=== PATIENT | male | born 1965 | race Caucasian/White ===

== ENCOUNTER 2020-09-13 23:09 | Emergency (ER) | payer OTHER ==
[~2020-09-13] VITALS: Ht 172.7 cm; Wt 99.8 kg
[2020-09-13 23:19] VITALS: Ht 172.7 cm; Wt 99.8 kg
[2020-09-14 01:18] LABS: PLATELET COUNT 223 x10^3mcL (152-348); RED CELL DISTRIBUTION WIDTH 13.8 % (12.1-16.2)
[2020-09-14 01:23] LABS: CALCIUM 8.4 mg/dL (8.5-10.1); CARBON DIOXIDE 26.7 mmol/L (21-32); CHLORIDE SERUM 102 mmol/L (98-107); CREATININE SERUM 0.8 mg/dL (0.7-1.3); GFR1 > 60 mL/min; GLUCOSE SERUM 104 mg/dL (74-106); POTASSIUM SERUM 3.7 mmol/L (3.5-5.1); SODIUM SERUM 137 mmol/L (136-145)
[2020-09-14 01:29] LABS: ALBUMIN 3.5 g/dL (3.4-5.0); ALKALINE PHOSPHATASE 105 U/L (46-116); ALT/SGPT 29 U/L (16-63); AMYLASE 82 U/L (25-115); AST/SGOT 14 U/L (15-37); BILIRUBIN TOTAL 0.3 mg/dL (0.20-1.00); LIPASE 240 IU/L (73-393); TOTAL PROTEIN, SERUM 6.5 g/dL (6.4-8.2)
[2020-09-14 02:59] VITALS: BP 144/77
[2020-09-14 03:28] LABS: UA SPECIFIC GRAVITY 1.015 (1.005-1.035); microscopic required? YES; urine erythrocyte 3+ (NEGATIVE)
== END 2020-09-14 03:05 | disposition home or self-care (01) ==
LOC: ED 23:09
PROVIDERS: Specialist
DX: N23 Unspecified renal colic (principal); Z95.1 Presence of aortocoronary bypass graft
CPT/HCPCS: J1885; J2405; J3010; J7030

== ENCOUNTER 2020-09-20 04:20 | Inpatient (IN) | payer OTHER ==
[~2020-09-20] VITALS: Ht 170.2 cm; Wt 99.3 kg
[2020-09-20 05:11] LABS: BASOPHIL % 0.4 % (0.2-1.5); PLATELET COUNT 228 x10^3mcL (152-348); RED CELL DISTRIBUTION WIDTH 13.4 % (12.1-16.2)
[2020-09-20 05:15] LABS: CALCIUM 8.8 mg/dL (8.5-10.1); CHLORIDE SERUM 103 mmol/L (98-107); CREATININE SERUM 1.3 mg/dL (0.7-1.3); GFR1 > 60 mL/min; GLUCOSE SERUM 132 mg/dL (74-106); POTASSIUM SERUM 3.8 mmol/L (3.5-5.1); SODIUM SERUM 136 mmol/L (136-145)
[2020-09-20 05:20] LABS: ALBUMIN 3.6 g/dL (3.4-5.0); ALKALINE PHOSPHATASE 134 U/L (46-116); ALT/SGPT 28 U/L (16-63); AST/SGOT 16 U/L (15-37); BILIRUBIN TOTAL 0.25 mg/dL (0.20-1.00); TOTAL PROTEIN, SERUM 6.9 g/dL (6.4-8.2)
[2020-09-20] MEDS ORDERED: LIPI10 (05:58)
[2020-09-20] MEDS ORDERED: ZESTRIL2.5 MG (05:59)
[2020-09-20] MEDS ORDERED: BISOPROLOL FUMAR5 MG (05:59)
[2020-09-20] MEDS ORDERED: [UNRECOGNIZED DRUG - OTHER] (06:00)
[2020-09-20] MEDS ORDERED: CELEBREX50 M1 (06:00)
[2020-09-20] MEDS ORDERED: PANTOPRAZOLE SO40 M3 (06:00)
[2020-09-20 08:22] LABS: BASOPHIL % 0.1 % (0.2-1.5); PLATELET COUNT 178 x10^3mcL (152-348); RED CELL DISTRIBUTION WIDTH 13.9 % (12.1-16.2)
[2020-09-20 09:36] LABS: rbc morphology (normal/abnorm) NORMAL (NORMAL)
[2020-09-20 11:22] VITALS: BP 125/65
[2020-09-20 13:36] LABS: BASOPHIL % 0.7 % (0.2-1.5); PLATELET COUNT 219 x10^3mcL (152-348); RED CELL DISTRIBUTION WIDTH 13.7 % (12.1-16.2)
[2020-09-20 17:07] VITALS: BP 146/69
[2020-09-20 19:59] VITALS: BP 141/79
[2020-09-20 20:14] LABS: BASOPHIL % 0.6 % (0.2-1.5); PLATELET COUNT 221 x10^3mcL (152-348); RED CELL DISTRIBUTION WIDTH 13.6 % (12.1-16.2)
[2020-09-20 22:36] LABS: microscopic required? YES; urine erythrocyte 3+ (NEGATIVE)
[2020-09-21 01:50] LABS: BASOPHIL % 0.6 % (0.2-1.5); PLATELET COUNT 224 x10^3mcL (152-348); RED CELL DISTRIBUTION WIDTH 13.8 % (12.1-16.2)
[2020-09-21 05:38] VITALS: BP 143/76
[2020-09-21 05:51] LABS: BASOPHIL % 0.6 % (0.2-1.5); PLATELET COUNT 213 x10^3mcL (152-348)
[2020-09-21 06:20] LABS: CHOLESTEROL/HDL RATIO 4.4
[2020-09-21 06:22] LABS: ALBUMIN 3.5 g/dL (3.4-5.0); ALKALINE PHOSPHATASE 110 U/L (46-116); ALT/SGPT 32 U/L (16-63); AST/SGOT 22 U/L (15-37); BILIRUBIN TOTAL 0.63 mg/dL (0.20-1.00); CARBON DIOXIDE 25.6 mmol/L (21-32); CHLORIDE SERUM 104 mmol/L (98-107); CREATININE SERUM 1.1 mg/dL (0.7-1.3); GFR1 > 60 mL/min; GLUCOSE SERUM 96 mg/dL (74-106); MAGNESIUM 2.2 mg/dL (1.8-2.4); PHOSPHOROUS 3.4 mg/dL (2.5-4.9); POTASSIUM SERUM 4.1 mmol/L (3.5-5.1); SODIUM SERUM 137 mmol/L (136-145); TOTAL PROTEIN, SERUM 6.7 g/dL (6.4-8.2)
[2020-09-21 07:52] VITALS: BP 135/70
[2020-09-21 11:11] VITALS: BP 149/77
[2020-09-21 15:09] VITALS: BP 105/59
[2020-09-21 21:42] VITALS: BP 140/72
[2020-09-22 06:31] LABS: ALBUMIN 3.8 g/dL (3.4-5.0); ALKALINE PHOSPHATASE 117 U/L (46-116); ALT/SGPT 30 U/L (16-63); AST/SGOT 32 U/L (15-37); BILIRUBIN TOTAL 0.55 mg/dL (0.20-1.00); CALCIUM 8.8 mg/dL (8.5-10.1); CARBON DIOXIDE 29.2 mmol/L (21-32); CHLORIDE SERUM 103 mmol/L (98-107); CREATININE SERUM 1.2 mg/dL (0.7-1.3); GFR1 > 60 mL/min; GLUCOSE SERUM 99 mg/dL (74-106); MAGNESIUM 2.3 mg/dL (1.8-2.4); PHOSPHOROUS 4.2 mg/dL (2.5-4.9); POTASSIUM SERUM 4.7 mmol/L (3.5-5.1); SODIUM SERUM 138 mmol/L (136-145); TOTAL PROTEIN, SERUM 7.5 g/dL (6.4-8.2)
[2020-09-22 06:32] VITALS: BP 134/64
[2020-09-22 07:03] LABS: BASOPHIL % 0.2 % (0.2-1.5); PLATELET COUNT 261 x10^3mcL (152-348); RED CELL DISTRIBUTION WIDTH 13.8 % (12.1-16.2)
[2020-09-22 08:34] VITALS: BP 143/83
[2020-09-22 12:07] VITALS: BP 158/73
[2020-09-22] MEDS ORDERED: COL250 PO (13:10)
[2020-09-22] MEDS ORDERED: ACETAMINOPHEN-H1 TA1 PO (13:11)
[2020-09-22 13:58] VITALS: BP 158/73
== END 2020-09-22 16:23 | disposition home or self-care (01) | DRG 660 ==
LOC: ED 04:20 → DU 06:35
PROVIDERS: Internal Medicine; Internal Medicine Cardiovascular Disease; Specialist; Urology; ADMIT Hospitalist; ATTEND Hospitalist
PROC: 0T778DZ Dilation of Left Ureter with Intraluminal Device, Via Natural or Artificial Opening Endoscopic (ICD-10-PCS; 2020-09-21)
PROC: BT1F1ZZ Fluoroscopy of Left Kidney, Ureter and Bladder using Low Osmolar Contrast (ICD-10-PCS; principal; 2020-09-21 12:00)
DX: N13.2 Hydronephrosis with renal and ureteral calculous obstruction (principal); K92.2 Gastrointestinal hemorrhage, unspecified; R10.9 Unspecified abdominal pain; I25.10 Atherosclerotic heart disease of native coronary artery without angina pectoris; I10 Essential (primary) hypertension; E78.5 Hyperlipidemia, unspecified; D17.9 Benign lipomatous neoplasm, unspecified; E66.9 Obesity, unspecified; Z79.899 Other long term (current) drug therapy; Z95.1 Presence of aortocoronary bypass graft; Z79.891 Long term (current) use of opiate analgesic; Z79.01 Long term (current) use of anticoagulants
CPT/HCPCS: C1769; C2625; C9113; G0378; J0131; J0696; J1170; J2405; J2704; J2765; J3010; J3490; J7030; J7060; J7120; Q9967

== ENCOUNTER 2020-10-04 05:58 | Day surgery (SDC) | payer OTHER, SELFPAY ==
[2020-09-29 13:15] LABS: BASOPHIL % 0.9 % (0.2-1.5); PLATELET COUNT 255 x10^3mcL (152-348); RED CELL DISTRIBUTION WIDTH 13.6 % (12.1-16.2)
[2020-09-29 13:22] LABS: ALBUMIN 3.7 g/dL (3.4-5.0); ALKALINE PHOSPHATASE 121 U/L (46-116); ALT/SGPT 44 U/L (16-63); AST/SGOT 21 U/L (15-37); BILIRUBIN TOTAL 0.23 mg/dL (0.20-1.00); CALCIUM 8.5 mg/dL (8.5-10.1); CARBON DIOXIDE 28.6 mmol/L (21-32); CHLORIDE SERUM 102 mmol/L (98-107); CREATININE SERUM 1.1 mg/dL (0.7-1.3); GFR1 > 60 mL/min; GLUCOSE SERUM 113 mg/dL (74-106); POTASSIUM SERUM 4.3 mmol/L (3.5-5.1); SODIUM SERUM 139 mmol/L (136-145); TOTAL PROTEIN, SERUM 7.5 g/dL (6.4-8.2)
--- NOTE | 2020-09-30 12:36 | NUR ---
ANESTHESIA DR WILKINSON REVIEWED PT PREOP INFORMATION AND TESTING. NO FURTHER ORDERS AT THIS TIME. NO ECHOCARDIOGRAM NEEDED. PT INFORMED.
[~2020-10-04] VITALS: Ht 170.2 cm; Wt 99.3 kg
[~2020-10-04 05:58] MED LIST: ACETAMINOPHEN-H1 TA1 PO; BISOPROLOL FUMAR5 MG; CELEBREX50 M1; COL250 PO; LIPI10; PANTOPRAZOLE SO40 M3; ZESTRIL2.5 MG; [UNRECOGNIZED DRUG - OTHER]
[2020-10-04 06:35] VITALS: BP 127/80
[2020-10-04 11:03] VITALS: BP 140/84
== END 2020-10-04 10:50 | disposition home or self-care (01) ==
LOC: DS 05:58 → OR 07:30 → DS 07:30
PROVIDERS: ATTEND Urology
DX: N20.1 Calculus of ureter (principal); E66.3 Overweight; Z68.34 Body mass index [BMI] 34.0-34.9, adult; Z95.1 Presence of aortocoronary bypass graft
CPT/HCPCS: C1758; C1769; C2625; J0131; J0696; J3010; Q9967; U0003